=== PATIENT | female | born 1940 | race Caucasian/White ===

== ENCOUNTER → 2021-03-27 12:38 | Outpatient (POV) | payer MEDICARE, SELFPAY | PROVIDERS: Visit Provider Dermatology | DX: Z00.00 Encounter for general adult medical examination without abnormal findings (principal) ==

== ENCOUNTER 2021-10-21 11:18 | Emergency (ER) | payer MEDICARE, SELFPAY ==
[2021-10-21 11:25] VITALS: BP 128/80; PULSE 76; RESP 19; TEMP 36.8; O2SAT 98; BMI 27.9
--- NOTE | 2021-10-21 11:55 | HMH.EDUTC ---
[facility] Disposition Clinical Impression: Infected skin tear Disposition: Home, Self-Care Condition on Discharge: Good Instructions: DI for Wound Infection, Amoxicillin and Clavulanic Acid Additional Instructions: Keep wound area cleaned and dry Leave wound open to air when at home Take medication as prescribed Return if needed Straight to ER if any life threatening symptoms Prescriptions: Amoxicillin/Potassium Clav [Augmentin 875-125 Tablet] 1 tab PO Q12H 5 Days #10 tab Transmission Status: Pending to [facility] Referrals: Júnior Ovalle MD [Primary Care Provider] - As needed Time of Disposition: 12:09 Medical Decision Making - Antoni Inquiry Pt receiving controlled substance: No Antoni was queried for this patient: No Vital Signs: 10/21/21 11:25 Temperature 98.3 F Temperature Source Oral Pulse Rate [Right Brachial] 76 Respiratory Rate 19 Blood Pressure [Right Arm] 128/80 Blood Pressure Mean [Right Arm] 96 Blood Pressure Source [Right Arm] Automatic Cuff Blood Pressure Position [Right Arm] Sitting 02 Sat by Pulse Oximetry 98 Oxygen Delivery Method Room Air Orders (Tests/Meds): ED MEDICATIONS Discontinued Medications Generic Name Dose Route Start Last Admin Trade Name Freq PRN Reason Stop Dose Admin Tetanus/Reduced Diphtheria/Acell Pertussis 0.5 ml 10/21/21 11:45 10/21/21 11:50 Tet/Diphth/Pert-Adult 0.5ml Syringe IM 10/21/21 11:46 0.5 ml .ONCE ONE Administration Medical Decision Narrative: medication discussed with pharmacy wound area cleaned well and bandage applied [facility] HPI - General Stated complaint: ao 10/21 right arm wound Time Seen by Provider: 10/21/21 11:56 Mode of Arrival: Ambulatory Source of Information: Patient Limitations: No Limitations Description of Symptoms (Recalled from Triage Doc. by RN): PATIENT C/O SKIN TEAR TO RIGHT FOREARM THAT HAPPENED ON FRIDAY WHEN SHE HIT HER ARM ON THE HOUSE HEENT Symptoms (Recalled from RN notes): No Resp Symptoms (Recalled from RN notes): No Skin Symptoms (Recalled from RN notes): Yes MS Symptoms (Recalled from RN notes): No Functional Status (Recalled from RN notes): WNL - History of Present Illness Provider Complaint: Patient states that she accidently hit her arm against the barn door and it caused a skin tear to her right forearm States that she cleaned it well and pulled the skin back States that today she was thinking she was unsure of her last tetanus and worried it may be getting infected so she came in - Related Data Home Medications Medication Instructions Recorded Confirmed aspirin 81 mg tablet,delayed 81 mg PO DAILY 09/01/18 02/07/19 release atorvastatin 20 mg tablet 20 mg PO DAILY 09/01/18 02/07/19 levothyroxine 50 mcg capsule 50 mcg PO DAILY 09/01/18 02/07/19 lisinopril 5 mg tablet 5 mg PO DAILY 09/01/18 02/07/19 simvastatin 20 mg tablet 20 mg PO QHS 09/01/18 02/07/19 Previous Rx's Medication Instructions Recorded benzonatate 200 mg capsule 200 mg PO TID 7 Days #21 cap 09/01/18 Amoxicillin/Potassium Clav 1 tab PO Q12H 5 Days #10 tab 10/21/21 [Augmentin 875-125 Tablet] Allergies Allergy/AdvReac Type Severity Reaction Status Date / Time acetaminophen [From Percocet] Allergy Mild Verified 02/07/19 10:41 oxycodone [From Percocet] Allergy Mild Verified 02/07/19 10:41 - Worker's Comp Is this a Worker's Comp case?: No [facility] History - Hepatitis A Screen Drug use history?: No High risk sexual behaviors?: No History of sexually transmitted infection?: No Currently employed?: No Childcare worker?: No Do you have indoor plumbing?: Yes Do you have electricity?: Yes Attestation statement:: This patient has been screened for Hepatitis A risk factors. I have reviewed the patient's past medical history: Yes Medical History: Reports:: Hyperlipidemia, Hypertension Other Medical History: Reports: Thyroid Disease - Social History Smoking Status: Never smoker Alcohol
[2021-10-21 12:15] VITALS: BP 128/80; PULSE 76; RESP 19; TEMP 36.8; O2SAT 98
== END 2021-10-21 12:18 | disposition home or self-care (01) ==
PROVIDERS: Emergency Provider Nurse Practitioner; PCP Family Medicine
DX: S51.811A Laceration without foreign body of right forearm, initial encounter (principal); W22.09XA Striking against other stationary object, initial encounter; Y92.019 Unspecified place in single-family (private) house as the place of occurrence of the external cause; Z23 Encounter for immunization
CPT/HCPCS: G0463; 90471; 90715; 99202

== ENCOUNTER → 2022-04-22 09:41 | Outpatient (CLI) | payer MEDICARE, SELFPAY ==
--- NOTE | 2022-04-22 09:58 | CT_ITS ---
FINAL REPORT TECHNIQUE: After the administration of oral and intravenous contrast, axial images were obtained through the abdomen and pelvis by computed tomography. The study was performed with techniques to keep radiation dose as low as reasonably achievable, (ALARA). Individual dose reduction techniques using automated exposure control or adjustment of mA and/or kV according to the patient's size were employed. CLINICAL HISTORY: LT FLANK PAIN,LT SIDED LOW BACK PAIN FINDINGS: Abdomen: A calcified granuloma is seen in the left lung base. Nine appearing cysts are seen in the superior right hepatic lobe measuring 4 mm and in the medial segment of the left hepatic lobe measuring 1.7 cm. The gallbladder is present. The spleen, pancreas, adrenals and kidneys appear unremarkable. The aorta is normal in caliber. There is no free fluid or adenopathy. Fluid is seen within several loops of small bowel measuring up to 2.7 cm. There is sigmoid diverticulosis without evidence of diverticulitis. Pelvis: The appendix is not identified. The urinary bladder is unremarkable. There is no free fluid or adenopathy. Phleboliths are seen in the pelvis. Advanced changes of degenerative disc disease are seen at L4-5 and L5-S1. IMPRESSION: Fluid and several loops of small bowel measuring up to 2.7 cm. Diverticulosis without evidence of diverticulitis. Advanced degenerative disc disease at L4-5 and L5-S1. Reviewed, Interpreted and Dictated by Doc Pete MD Transcribed by Stephanie Angela Authenticated and [facility]
== END ==
PROVIDERS: PCP Nurse Practitioner Family; Visit Provider Nurse Practitioner Family
DX: R10.9 Unspecified abdominal pain (principal); M54.50 Low back pain, unspecified
CPT/HCPCS: 74177; Q9967